=== PATIENT | female | born 1960 | race Caucasian/White ===

== ENCOUNTER → 2024-04-21 11:10 | Outpatient (REF) | payer OTHER, SELFPAY | LOC: HWRAD 11:10 | PROVIDERS: ATTENDING PHYSICIAN Family Medicine | DX: R22.1 Localized swelling, mass and lump, neck (principal); E03.9 Hypothyroidism, unspecified | CPT/HCPCS: 76536 ==

== ENCOUNTER → 2025-04-06 15:17 | Outpatient (REF) | payer MEDICARE, OTHER, SELFPAY | LOC: HWRCS 15:17 | PROVIDERS: ATTENDING PHYSICIAN Internal Medicine Cardiovascular Disease; FAMILY PHYSICIAN Family Medicine | DX: R07.2 Precordial pain (principal); R00.2 Palpitations; R06.09 Other forms of dyspnea; R42 Dizziness and giddiness | CPT/HCPCS: 93306 ==

== ENCOUNTER → 2025-04-27 07:55 | Outpatient (REF) | payer MEDICARE, OTHER, SELFPAY | LOC: HWRCS 07:55 | PROVIDERS: ATTENDING PHYSICIAN Internal Medicine Cardiovascular Disease; FAMILY PHYSICIAN Family Medicine | DX: R07.2 Precordial pain (principal); R00.2 Palpitations; R06.09 Other forms of dyspnea; R42 Dizziness and giddiness | CPT/HCPCS: 78452; 93017; A9500; J2785 ==